=== PATIENT | female | born 1945 | race African-American/Black ===

== ENCOUNTER 2023-03-10 09:21 | Outpatient (CLI) | payer MEDICARE | END 2023-03-10 09:22 | disposition home or self-care (01) | LOC: CSHRAD 09:21 | PROVIDERS: ATTEND Neurological Surgery | DX: M47.26 Other spondylosis with radiculopathy, lumbar region (principal); M43.16 Spondylolisthesis, lumbar region | CPT/HCPCS: 72120 ==

== ENCOUNTER 2023-05-27 10:06 | Outpatient (CLI) | payer MEDICARE | END 2023-05-27 10:07 | disposition home or self-care (01) | LOC: CSHCT 10:06 | PROVIDERS: ATTEND Neurological Surgery | DX: M43.16 Spondylolisthesis, lumbar region (principal) | CPT/HCPCS: 72131 ==